=== PATIENT | female | born 1960 | race African-American/Black ===

== ENCOUNTER 2021-01-06 05:45 | Observation (INO) ==
[2020-12-30 16:03] LABS: Basophils % 0.5 % (0.0-0.8); Eosinophils # 0.1 10*3/uL (0.0-0.87); Eosinophils % 0.9 % (0.00-10.9); Hematocrit 38.1 VOL% (35.7-47.0); Hemoglobin 11.7 GM/DL (12.0-16.0); Immature Granulocytes % 0.4 %; Immature Granulocytes Absolute 0.02 #; Lymphocytes # 1.7 10*3/uL (1.4-4.0); Lymphocytes % 30.8 % (21.3-54.2); Mean Corpuscular HGB Conc 30.7 GM/DL (32-36); Mean Corpuscular Volume 72.2 FL (87-102); Mean Platelet Volume 10.8 FL (9.6-12.0); Monocytes % 9.3 % (1.7-12.7); Neutrophils % 58.1 % (38.7-73.9); Platelet Count 271 T/CUMM (130-400); Red Blood Count 5.28 MC/CUMM (3.8-5.5); Red Cell Distribution Width 14.8 % (9.3-17.3); White Blood Count 5.5 T/CUMM (4-12)
[2020-12-30 16:04] LABS: Bilirubin,Urine Negative (Negative); Blood, Urine Negative (Negative); Glucose,Urine (UA) >=500 mg/dL (Negative); Ketones,Urine Negative (Negative); Mucus,Urine Occasional /LPF (Occasional); Nitrite,Urine Negative (Negative); Protein,Urine Negative; RBC,Urine 3 /HPF (0-4); Squamous Epithelial Cell,Urine Occasional /HPF (0-10); Urine Appearance CLEAR (Clear); Urine Color Yellow (Yellow); Urine Specific Gravity 1.026 (1.001-1.035); Urine Urobilinogen < 2.0 EU/DL (0.2-1.0)
[2020-12-30 16:26] LABS: Albumin 3.8 G/DL (3.4-5.0); Bilirubin,Total 0.5 MG/DL (0.20-1.00); Calcium 8.9 MG/DL (8.5-10.1); Osmolality,Calculated 274.7 MOS/KG (273-304); Potassium 3.6 MMOL/L (3.5-5.1); Total Protein 7.9 G/DL (6.4-8.2)
[2020-12-30 16:33] LABS: INR 0.9; PT Patient Result 10.3 SECS (10.5-12.0); Partial Thromboplastin Time 29.1 SECS (23.9-33.8)
[2021-01-06] MEDS ORDERED: VANCOMYCIN INJ 1,000 MG in SODIUM CHLORIDE 0.9% 250 ML IV ONE (06:00)
[2021-01-06] MEDS: LACTATED RINGERS 1,000 ML IV SCH ×3 (06:40→11:51)
[2021-01-06] MEDS ORDERED: LIDOCAINE 2% 5 ML VIAL ONE ×2 (06:48→08:42)
[2021-01-06] MEDS ORDERED: TRANEXAMIC ACID 1,000 MG/10 ML VIAL ONE (06:48)
[2021-01-06] MEDS ORDERED: ONDANSETRON 4 MG/2 ML VIAL ONE (06:48)
[2021-01-06] MEDS ORDERED: MIDAZOLAM 2 MG/2 ML VIAL ONE (06:48)
[2021-01-06] MEDS ORDERED: fentaNYL 100 MCG/2 ML VIAL ONE (06:48)
[2021-01-06] MEDS ORDERED: propofoL 200 MG/20 ML VIAL IV ONE ×4 (06:48→09:08)
[2021-01-06] MEDS ORDERED: SODIUM CHLORIDE 0.9% 250 ML IV ONE ×2 (06:48→09:08)
[2021-01-06] MEDS ORDERED: KETAMINE 500 MG/10 ML VIAL ONE (06:48)
[2021-01-06] MEDS ORDERED: PHENYLEPHRINE 10 MG/1 ML VIAL IV ONE (06:53)
[2021-01-06] MEDS ORDERED: ROPIVACAINE 0.5% 30 ML VIAL ONE (06:55)
[2021-01-06] MEDS ORDERED: DEXAMETHASONE 4 MG/1 ML VIAL ONE (06:55)
[2021-01-06] MEDS ORDERED: DIAZEPAM 5 MG TABLET PO ONE (07:00)
[2021-01-06] MEDS ORDERED: FAMOTIDINE 20 MG TABLET PO ONE (07:00)
[2021-01-06] MEDS ORDERED: ACETAMINOPHEN 500 MG TABLET PO ONE (07:00)
[2021-01-06] MEDS ORDERED: GABAPENTIN 400 MG CAPSULE PO ONE (07:00)
[2021-01-06] MEDS ORDERED: BUPIVACAINE SPINAL 0.75% 2 ML AMP SPINAL ONE (08:30)
[2021-01-06] MEDS ORDERED: SODIUM CHLORIDE 0.9% 100 ML IV ONE (08:30)
[2021-01-06] MEDS ORDERED: PHENYLEPHRINE DRIP 20 MG/250 ML PREMIX IV ONE (08:31)
[2021-01-06] MEDS ORDERED: MAGNESIUM HYDROXIDE SUSP 30 ML UDCUP PO PRN (08:35)
[2021-01-06] MEDS ORDERED: diphenhydrAMINE CAP 25 MG CAPSULE PO PRN (08:36)
[2021-01-06] MEDS ORDERED: ONDANSETRON 4 MG/2 ML VIAL IV PRN (08:36)
[2021-01-06] MEDS ORDERED: BISACODYL 10 MG SUPP RECTAL PRN (08:36)
[2021-01-06] MEDS ORDERED: TEMAZEPAM 7.5 MG CAPSULE PO PRN (08:36)
[2021-01-06] MEDS ORDERED: LACTULOSE 20 GM/30 ML UDCUP PO PRN (08:36)
[2021-01-06] MEDS ORDERED: DICLOFENAC 1% GEL 100 GM TUBE TOP PRN (08:38)
[2021-01-06] MEDS ORDERED: ONDANSETRON 4 MG TABLET PO PRN (08:38)
[2021-01-06] MEDS ORDERED: LACTATED RINGERS 1,000 ML IV ONE (08:38)
[2021-01-06] MEDS ORDERED: DEXTROSE 50% 25 GM/50 ML VIAL IV PRN (08:39)
[2021-01-06] MEDS ORDERED: GLUCAGON 1 MG VIAL IM PRN (08:39)
[2021-01-06] MEDS ORDERED: MORPHINE 2 MG/1 ML SYRINGE IV PRN (08:46)
[2021-01-06] MEDS ORDERED: ePHEDrine 50 MG/ML VIAL ONE (08:51)
[2021-01-06] MEDS ORDERED: TORSEMIDE 20 MG TABLET PO SCH (09:00)
[2021-01-06] MEDS ORDERED: DEXTROSE 50% 25 GM/50 ML VIAL IV ONE (09:56)
[2021-01-06] MEDS: FERROUS SULFATE 325 MG TABLET PO SCH (16:01)
[2021-01-06] MEDS: INSULIN REGULAR 100 UNIT/ML SUBCUT SCH ×3 (16:01→22:13)
[2021-01-06] MEDS: amLODIPine 5 MG TABLET PO SCH (16:19)
[2021-01-06] MEDS: carvediloL 6.25 MG TABLET PO SCH (21:04)
[2021-01-06] MEDS: DOCUSATE SODIUM 100 MG CAPSULE PO SCH (21:04)
[2021-01-06] MEDS: FONDAPARINUX 2.5 MG/0.5 ML SYRINGE SUBCUT SCH (21:04)
[2021-01-06] MEDS: POTASSIUM CHLORIDE 10 MEQ TABLET PO SCH (21:04)
[2021-01-06] MEDS: MORPHINE 2 MG/1 ML SYRINGE IV PRN (21:07)
[2021-01-06] MEDS: INSULIN GLARGINE 100 UNIT/ML SUBCUT SCH (22:14)
[2021-01-07 05:06] LABS: Basophils % 0.3 % (0.0-0.8); Eosinophils % 0.3 % (0.00-10.9); Hematocrit 32.5 VOL% (35.7-47.0); Hemoglobin 9.7 GM/DL (12.0-16.0); Immature Granulocytes % 0.3 %; Immature Granulocytes Absolute 0.02 #; Lymphocytes # 0.9 10*3/uL (1.4-4.0); Lymphocytes % 12.4 % (21.3-54.2); Mean Corpuscular HGB Conc 29.8 GM/DL (32-36); Mean Corpuscular Volume 72.7 FL (87-102); Mean Platelet Volume 10.9 FL (9.6-12.0); Monocytes % 11.8 % (1.7-12.7); Neutrophils % 74.9 % (38.7-73.9); Platelet Count 206 T/CUMM (130-400); Red Blood Count 4.47 MC/CUMM (3.8-5.5); White Blood Count 6.9 T/CUMM (4-12)
[2021-01-07 05:24] LABS: Calcium 8.1 MG/DL (8.5-10.1); Osmolality,Calculated 276.8 MOS/KG (273-304); Potassium 3.9 MMOL/L (3.5-5.1)
[2021-01-07] MEDS: DOCUSATE SODIUM 100 MG CAPSULE PO SCH ×2 (08:19→20:22)
[2021-01-07] MEDS: CETIRIZINE 10 MG TABLET PO SCH (08:19)
[2021-01-07] MEDS: CHOLECALCIFEROL 1,000 UNIT TABLET PO SCH (08:19)
[2021-01-07] MEDS: FERROUS SULFATE 325 MG TABLET PO SCH ×2 (08:20→16:29)
[2021-01-07] MEDS: PANTOPRAZOLE 40 MG TABLET PO SCH (08:20)
[2021-01-07] MEDS: POTASSIUM CHLORIDE 10 MEQ TABLET PO SCH ×2 (08:20→20:22)
[2021-01-07] MEDS: carvediloL 6.25 MG TABLET PO SCH ×2 (08:20→20:22)
[2021-01-07] MEDS: MAGNESIUM OXIDE 400 MG TABLET PO SCH (08:20)
[2021-01-07] MEDS: LISINOPRIL/HCTZ 20-25 MG TABLET PO SCH (08:20)
[2021-01-07] MEDS: INSULIN REGULAR 100 UNIT/ML SUBCUT SCH ×4 (08:38→20:23)
[2021-01-07] MEDS: GLIMEPIRIDE 4 MG TABLET PO SCH ×2 (08:39→16:23)
[2021-01-07] MEDS: amLODIPine 5 MG TABLET PO SCH (09:24)
[2021-01-07 10:08] LABS: % Iron Saturation 7.7 % (18-50)
[2021-01-07] MEDS: FONDAPARINUX 2.5 MG/0.5 ML SYRINGE SUBCUT SCH (20:21)
[2021-01-07] MEDS: MORPHINE 2 MG/1 ML SYRINGE IV PRN (20:22)
[2021-01-07] MEDS: INSULIN GLARGINE 100 UNIT/ML SUBCUT SCH (20:23)
[2021-01-08] MEDS: MORPHINE 2 MG/1 ML SYRINGE IV PRN ×2 (01:51→13:24)
[2021-01-08 05:02] LABS: Basophils % 0.3 % (0.0-0.8); Eosinophils % 0.3 % (0.00-10.9); Hematocrit 33.2 VOL% (35.7-47.0); Immature Granulocytes % 0.7 %; Immature Granulocytes Absolute 0.05 #; Lymphocytes # 1.5 10*3/uL (1.4-4.0); Lymphocytes % 20.6 % (21.3-54.2); Mean Corpuscular HGB Conc 30.1 GM/DL (32-36); Mean Platelet Volume 10.9 FL (9.6-12.0); Monocytes % 14.7 % (1.7-12.7); Neutrophils % 63.4 % (38.7-73.9); Platelet Count 223 T/CUMM (130-400); Red Blood Count 4.61 MC/CUMM (3.8-5.5); Red Cell Distribution Width 14.8 % (9.3-17.3)
[2021-01-08 05:31] LABS: Calcium 8.8 MG/DL (8.5-10.1); Osmolality,Calculated 263.5 MOS/KG (273-304); Potassium 3.6 MMOL/L (3.5-5.1)
[2021-01-08] MEDS: MAGNESIUM OXIDE 400 MG TABLET PO SCH (08:32)
[2021-01-08] MEDS: amLODIPine 5 MG TABLET PO SCH (08:32)
[2021-01-08] MEDS: POTASSIUM CHLORIDE 10 MEQ TABLET PO SCH (08:32)
[2021-01-08] MEDS: GLIMEPIRIDE 4 MG TABLET PO SCH (08:32)
[2021-01-08] MEDS: LISINOPRIL/HCTZ 20-25 MG TABLET PO SCH (08:33)
[2021-01-08] MEDS: carvediloL 6.25 MG TABLET PO SCH (08:33)
[2021-01-08] MEDS: DOCUSATE SODIUM 100 MG CAPSULE PO SCH (08:33)
[2021-01-08] MEDS: CETIRIZINE 10 MG TABLET PO SCH (08:33)
[2021-01-08] MEDS: FERROUS SULFATE 325 MG TABLET PO SCH (08:33)
[2021-01-08] MEDS: PANTOPRAZOLE 40 MG TABLET PO SCH (08:33)
[2021-01-08] MEDS: INSULIN REGULAR 100 UNIT/ML SUBCUT SCH (08:34)
[2021-01-08] MEDS: CHOLECALCIFEROL 1,000 UNIT TABLET PO SCH (10:21)
[2021-01-08 17:04] VITALS: BP 146/79
== END 2021-01-08 17:20 | disposition home health service (06) ==
LOC: N.OR 05:45 → N.SDSINP 05:47 → INTOOBSV 08:35 → N.3E 13:34
PROVIDERS: ADMIT Orthopaedic Surgery; ATTEND Orthopaedic Surgery